=== PATIENT | male | born 1955 | race Two or more races ===

== ENCOUNTER → 2018-05-01 | Day surgery (SDC) | payer OTHER ==
[~2018-05-01] MED LIST: ACET325T9 PO; ALBU18HF IH; ALBUTEROL SULFATE 2.5 MG/3 ML NEBU. NEB PRN; ASPI81TA50 PO; ATROPINE 0.5 MG/5 ML DISP.SYRIN. IV PRN; FLUT1AER IH; GABA600T2 PO; INSU100V13 SQ; INSU100V31 SQ; IV RINGERS SOLUTION,LACTATED 1,000 ML IV SCH; LIDOCAINE 2% PF Vial for OR 5 ML VIAL. ONE; LISI10TA2 PO; LOSA50TA7 PO; MELO15TA23 PO; METF500T16 PO; MONT10TA9 PO; NALOXONE 0.4 MG/ML VIAL. IV PRN; OMEP20CA9 PO; ONDANSETRON PF 4 MG/2 ML VIAL. IV PRN; POTA10TA12 PO; PRED-220 PO; PROPOFOL 40 ML IV ONE; SODIUM PHOSPHATES 19/7GM 133 ML ENEMA. PR ONE
[2018-05-01 12:10] VITALS: BP 122/80
--- NOTE | 2018-05-05 14:09 | PATHOLOGY ---
[facility] Accession Number: [id number] . 01 Material submitted: . ANTRUM BX . 01 Clinical history: . GERD . 02 Diagnosis: Stomach, antrum, biopsy: - Chronic superficial gastritis, mild. - No evidence of Helicobacter pylori on immunoperoxidase stain. . (SKM:mml; 05/05/18) [facility]/05/05/2018 . 02 Electronically signed: . Ifeanyi Prado MD, Pathologist NPI- [id number] . 01 Gross description: . Received in formalin labeled "Philip Miguel, Dario, antrum BX, gastritis," are 2 segments of [place] soft tissue measuring 0.9 x 0.2 x 0.2 cm in aggregate dimensions and ranging from 0.4 to 0.5 cm in maximum dimension. The specimen is submitted entirely in cassette A1. (TSD; 05/04/2018) TOB/TOB . 02 Microscopic: . . . 02 Pathologist provided ICD-10: K29.30 . 02 CPT . 642966, [id number] Specimen Comment: A courtesy copy of this report has been sent to Specimen Comment: [phone], . Specimen Comment: Report sent to / DR WATERS Specimen Comment: A duplicate report has been generated due to demographic updates. Performed at: 01 [facility] [address] [facility] [address], [place] [id number] MD Ryan Giles MD Phone: [phone] Performed at: 02 [facility] [address] [id number] MD Rolo Baez MD Phone: [phone]
== END | disposition home or self-care (01) ==
LOC: SURG 09:37
PROVIDERS: ATTEND Internal Medicine Gastroenterology
DX: Z12.11 Encounter for screening for malignant neoplasm of colon (principal); K64.4 Residual hemorrhoidal skin tags; K44.9 Diaphragmatic hernia without obstruction or gangrene; K29.30 Chronic superficial gastritis without bleeding; K29.00 Acute gastritis without bleeding; K22.8 Other specified diseases of esophagus; Z88.0 Allergy status to penicillin; I10 Essential (primary) hypertension; E11.39 Type 2 diabetes mellitus with other diabetic ophthalmic complication; H42 Glaucoma in diseases classified elsewhere; K21.9 Gastro-esophageal reflux disease without esophagitis; N40.0 Benign prostatic hyperplasia without lower urinary tract symptoms; M19.90 Unspecified osteoarthritis, unspecified site; J45.50 Severe persistent asthma, uncomplicated; H54.7 Unspecified visual loss; Z90.49 Acquired absence of other specified parts of digestive tract; Z98.890 Other specified postprocedural states; Z96.698 Presence of other orthopedic joint implants; Z83.3 Family history of diabetes mellitus; Z82.49 Family history of ischemic heart disease and other diseases of the circulatory system; Z72.89 Other problems related to lifestyle; Z79.82 Long term (current) use of aspirin; Z79.899 Other long term (current) drug therapy; Z79.84 Long term (current) use of oral hypoglycemic drugs; Z87.19 Personal history of other diseases of the digestive system
CPT/HCPCS: 43239; 45378; 82947; 88305; 88342; J2704; J3010; J7120; J7613; J2001